=== PATIENT | male | born 1995 ===

== ENCOUNTER 2017-04-20 10:48 | Day surgery (SDC) | payer OTHER ==
[~2017-04-20 10:48] MED LIST: Acetaminophen/HYDROcodone 325-5 MG Tab PO PRN; Dexamethasone 4 MG/ML 5 ML MDV ONE; Lactated Ringers 1,000 ML IV SCH; Lidocaine 1% 20 ML MDV ONE; Midazolam 1 MG/ML 2 ML SDV ONE; Ondansetron 4 MG/2 ML SDV ONE; Propofol 200 MG/20 ML SDV ONE; ceFAZolin 2 GM in Premix Bag 1 BAG IV SCH; fentaNYL 100 MCG/2 ML SDV ONE
--- NOTE | 2017-04-20 11:38 | PCM.PREANE ---
Preanesthetic Assessment - Anesthesia/Transfusion/Family Hx Anesthesia History: Prior Anesthesia Without Reaction Family History of Anesthesia Reaction: No Transfusion History: No Prior Transfusion(s) - Review of Systems General: No Symptoms Pulmonary: No Symptoms Cardiovascular: No Symptoms Gastrointestinal: No Symptoms (Denies reflux or heartburn) Neurological: No Symptoms Other: Reports: None - Physical Assessment NPO Status Date: 04/19/17 NPO Status Time: 23:00 Height: 1.88 m Weight: 108.862 kg ASA Class: 1 Mental Status: Alert & Oriented x3 Airway Class: Mallampati = 2 Dentition: Reports: Normal Dentition Thyro-Mental Finger Breadths: 3 Mouth Opening Finger Breadths: 3 ROM/Head Extension: Full Lungs: Clear to Auscultation Cardiovascular: Regular Rate - Allergies Allergies/Adverse Reactions: Allergies Allergy/AdvReac Type Severity Reaction Status Date / Time No Known Allergies Allergy Verified 04/18/17 16:58 - Anesthesia Plan Free Text/Narrative:: GA with LMA - Acknowledgements Anesthesia Type Planned: General Anesthesia Pt an Appropriate Candidate for the Planned Anesthesia: Yes Alternatives and Risks of Anesthesia Discussed w Pt/Guardian: Yes Pt/Guardian Understands and Agrees with Anesthesia Plan: Yes Additional Comments: Patient relative in room translating for patient. Patient denies any medical problems, smoking, drinking or drug use. Both deny any questions. PreAnesthesia Questionnaire Gastrointestinal History: Reports: None - Past Surgical History GI Surgical History: Reports: Appendectomy - SUBSTANCE USE Smoking Status *Q: Never Smoker Recreational Drug Use History: No - HOME MEDS Home Medications: Home Meds . [No Known Home Meds] 04/18/17 [History] - CURRENT (IN HOUSE) MEDS Current Meds: Current Medications Hydrocodone Bitart/Acetaminophen (Bangs 325-5 Mg) 1 - 2 tab PO Q4H PRN PRN Reason: Pain Cefazolin Sodium/Dextrose 2 gm (/ Premix) 50 mls @ 100 mls/hr IV ONCALL ALIYAH Lactated Ringer's (Ringers, Lactated) 1,000 mls @ 100 mls/hr IV ASDIRECTED ALIYAH Discontinued Medications Dexamethasone (Dexamethasone) Confirm Administered Dose 20 mg .ROUTE .STK-MED ONE Stop: 04/20/17 10:44 Fentanyl (Sublimaze) Confirm Administered Dose 100 mcg .ROUTE .STK-MED ONE Stop: 04/20/17 10:43 Lidocaine HCl (Xylocaine 1%) Confirm Administered Dose 20 ml .ROUTE .STK-MED ONE Stop: 04/20/17 07:31 Lidocaine HCl (Xylocaine-Mpf 1%) Confirm Administered Dose 5 ml .ROUTE .STK-MED ONE Stop: 04/20/17 10:44 Midazolam HCl (Versed 1 Mg/Ml) Confirm Administered Dose 2 mg .ROUTE .STK-MED ONE Stop: 04/20/17 10:43 Ondansetron HCl (Zofran) Confirm Administered Dose 4 mg .ROUTE .STK-MED ONE Stop: 04/20/17 10:44 Propofol (Diprivan 20 Ml) Confirm Administered Dose 200 mg .ROUTE .STK-MED ONE Stop: 04/20/17 10:43
[2017-04-20] MEDS ORDERED: ceFAZolin 1 GM Vial ONE (12:35)
[2017-04-20] MEDS ORDERED: fentaNYL 100 MCG/2 ML SDV IVPUSH PRN (14:01)
[2017-04-20] MEDS ORDERED: fentaNYL 100 MCG/2 ML SDV ONE (14:06)
--- NOTE | 2017-04-20 14:32 | PCM.OPNOTE ---
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
--- NOTE | 2017-04-20 14:55 | PCM.POSTAN ---
POST ANESTHESIA ASSESSMENT - MENTAL STATUS Mental Status: Alert, Oriented - RESPIRATORY Respiratory Status: Respiratory Rate WNL, Airway Patent, O2 Saturation Stable - CARDIOVASCULAR CV Status: Pulse Rate WNL, Blood Pressure Stable - GASTROINTESTINAL GI Status: No Symptoms - POST OP HYDRATION Hydration Status: Adequate & Stable
--- NOTE | 2017-04-20 15:19 | PCM48HPAN ---
Post Anesthesia Note - EVALUATION WITHIN 48HRS OF ANESTHETIC Vital Signs in Normal Range: Yes Patient Participated in Evaluation: Yes (per RN and portuguese pain scale faces) Respiratory Function Stable: Yes Airway Patent: Yes Cardiovascular Function Stable: Yes Hydration Status Stable: Yes Pain Control Satisfactory: Yes Nausea and Vomiting Control Satisfactory: Yes Mental Status Recovered: Yes
[2017-04-20 16:44] VITALS: BP 133/71
--- NOTE | 2017-04-20 22:46 | OR ---
SURGEON: Nancy Kaplan MD DATE OF PROCEDURE: 04/20/2017 PREOPERATIVE DIAGNOSES: 1. Right knee medial meniscus tear. 2. Right knee lateral meniscus tear. 3. Right knee anterior cruciate ligament injury. POSTOPERATIVE DIAGNOSIS: Right lateral tibial plateau chondromalacia. PROCEDURE: Right knee arthroscopy with chondroplasty of the lateral tibial plateau. [employer]ING ASSEMBLER: Lynsey Kent PA-C. ANESTHESIA: General. ESTIMATED BLOOD LOSS: 5 mL. TOURNIQUET TIME: 10 minutes. COMPLICATIONS: None. DVT PROPHYLAXIS: Not indicated. IMPLANTS USED: None. BRIEF HISTORY: Jordon is a 21-year-old male, who sustained a work related injury. He did have an MRI scan done in [place], which did show tears of the medial and lateral meniscus along with a possible injury to the ACL. Due to his lack of response to conservative treatment, I did recommend surgical intervention. The risks and goals of the procedure were discussed with the patient and were documented preoperatively. He agreed to proceed. DESCRIPTION OF PROCEDURE: The patient was properly identified and brought to the operating room. He was transferred from the OR cart and placed on the operating room table in supine position. General anesthesia was administered. After adequate anesthesia was obtained, a well-padded tourniquet was applied to the right lower extremity. The right lower extremity was then prepped in standard fashion using ChloraPrep solution. It was then sterilely draped. A time-out was performed to ensure correct site and procedure. Preoperative antibiotics were given. The surgical site had been marked preoperatively. An Esmarch was used to exsanguinate the right lower extremity and the tourniquet was inflated to 250 mmHg. A lateral portal arthrotomy was established. Blunt trocar and cannula were introduced into the suprapatellar pouch. Camera, inflow, and outflow were assembled. The suprapatellar pouch showed no significant synovitis. The patellofemoral joint was then visualized. An area of grade 2 chondromalacia was noted along the central portion of the patella which measured approximately 5 mm x 5 mm. The trochlea showed no significant degenerative changes. The patella appeared to track centrally. I then extended down the lateral and medial gutter. No loose bodies were identified. I then entered the medial compartment. A medial portal arthrotomy was established. A blunt probe was inserted. The meniscus was extensively probed. A small undersurface tear was noted along the posterior horn, however, this was not full thickness and no instability was noted with probing of this. I elected to leave it as is. Both the medial tibial plateau and medial femoral condyle showed no degenerative findings. I then entered the notch. Both the ACL and PCL were visualized. The ACL was extensively probed. It had a good attachment to the lateral femoral condyle. No evidence of instability was noted. I then entered the lateral compartment. He did have evidence of grade 2 chondromalacia along the medial aspect of the lateral tibial plateau. With probing of the lateral aspect of the lateral tibial plateau, there appeared to be some softening of the cartilage, however, was stable. The meniscus was then extensively probed. It was stable and found to be intact. A 4.5 mm oscillating shaver was then used to perform a chondroplasty along the medial aspect of the lateral tibial plateau. The cartilage was again probed and was found to be stable. Instruments were then removed from the knee. The portal sites were closed with 3-0 nylon. Lidocaine 1% was injected along the portal tracts. Xeroform gauze was placed over the wound and a bulky dressing was applied. The tourniquet was then deflated. He was awakened from his anesthetic and transferred back to the operating room cart. He was brought to recovery room in stable condition. All needle and sponge counts were correct. SARAH / JAMARI /[id number]
== END 2017-04-20 16:05 | disposition home or self-care (01) ==
LOC: MW.SDS 10:48 → EDBD 10:48 → MW.SDS 16:05
PROVIDERS: ATTEND Orthopaedic Surgery
DX: M94.261 Chondromalacia, right knee (principal); S83.241A Other tear of medial meniscus, current injury, right knee, initial encounter; Z90.49 Acquired absence of other specified parts of digestive tract
CPT/HCPCS: 29877; 88304; J0690; J1100; J2250; J2405; J3010; J7120; 01400; J2704